=== PATIENT | male | born 1960 | race Caucasian/White ===

== ENCOUNTER → 2023-04-04 08:56 | Outpatient (REF) | payer BC, SELFPAY | LOC: HWCARD 08:56 | PROVIDERS: ATTENDING PHYSICIAN Orthopaedic Surgery; FAMILY PHYSICIAN Family Medicine | DX: Z01.818 Encounter for other preprocedural examination (principal) | CPT/HCPCS: 93005 ==

== ENCOUNTER → 2024-11-10 09:04 | Outpatient (REF) | payer MEDICARE, BC, SELFPAY | LOC: PAVMRI 09:04 | PROVIDERS: ATTENDING PHYSICIAN Physician Assistant Surgical; FAMILY PHYSICIAN Family Medicine | DX: M17.12 Unilateral primary osteoarthritis, left knee (principal); D16.22 Benign neoplasm of long bones of left lower limb; Z98.890 Other specified postprocedural states | CPT/HCPCS: 73721 ==